=== PATIENT | male | born 1975 | race Caucasian/White ===

== ENCOUNTER 2019-01-21 06:52 | Emergency (ER) | payer OTHER, SELFPAY ==
[2019-01-21 06:59] VITALS: BP 109/73; PULSE 56; RESP 18; TEMP 36.6; O2SAT 100
--- NOTE | 2019-01-21 07:07 | DI.RAD.S_ITS ---
PROCEDURE: XR FINGER RT MIN 2V INDICATIONS: cut finger on metal yesterday, increased pain ?FB TECHNIQUE: AP hand, 2 views of the right second finger(s) acquired. COMPARISON: None. FINDINGS: Bones: No fractures or dislocations. No suspicious bony lesions. Soft tissues: No suspicious soft tissue calcifications. IMPRESSION: No fracture or foreign body found. Dictated by: Imtiaz Nassar M.D. on 01/21/2019 at 8:06 Approved by: Imtiaz Nassar M.D. on 01/21/2019 at 8:07
[2019-01-21] MEDS: IBUPROFEN 400 MG TABLET 800 MG PO (07:11)
[2019-01-21] MEDS: TET,DIPH,PERTUSS(ACELL),VAC/PF 0.5 ML SYRINGE IM (07:12)
--- NOTE | 2019-01-21 07:25 | ED.WOUNDLAC ---
HPI - Wound/Laceration General Chief Complaint: Wound/Laceration Stated Complaint: RIGHT INDEX FINGER LACERATION YESTERDAY Time Seen by Provider: 01/21/19 07:01 Source: patient Mode of arrival: ambulatory Limitations: no limitations History of Present Illness HPI narrative: Patient is a 43-year-old male who presents with right index finger laceration. He says yesterday it cut himself on a piece of metal. He thought it was just a regular cut however this morning woke up in extreme pain. Feels like something might be in the air. He did have a bandage on it may took the bandage off he says it got worse. He feels like it is a little bit numb. Bleeding is controlled. Tetanus is not up-to-date. Onset (ago): day(s) (1) Related Data Allergies Allergy/AdvReac Type Severity Reaction Status Date / Time No Known Drug Allergies Allergy Verified 01/21/19 07:11 Review of Systems Review of Systems GENERAL: Denies chills,fever HEENT: Denies throat pain RESPIRATORY: Denies dyspnea, cough, wheezing CARDIOVASCULAR: Denies chest pain, palpitations GASTROINTESTINAL: Denies nausea, vomiting MUSCULOSKELETAL: Denies extremity pain, injury SKIN: See HPI NEUROLOGIC: Denies weakness, dizziness, headache, numbness 8 point review of systems is negative except for those stated above and HPI [facility] Medical History Patient denies significant medical history (Acute) Social History Smoking Status: Never smoker Social History Smoking Status: Never smoker Exam Initial Vital Signs Initial Vital Signs: Vital Signs Temperature 98 F 01/21/19 06:59 Pulse Rate 56 L 01/21/19 06:59 Respiratory Rate 18 01/21/19 06:59 Blood Pressure 109/73 01/21/19 06:59 Pulse Oximetry 100 01/21/19 06:59 GENERAL: Well-appearing, well-nourished and in no acute distress. CARDIOVASCULAR: peripheral pulses in tact, cap refill <2 sec RESPIRATORY: No respiratory distress, speaks in full sentences without difficulty EXTREMITIES: Normal range of motion, no clubbing or edema. Neurovascularly intact NEUROLOGICAL: Cranial nerves II through XII grossly intact. Normal gait and speech. SKIN: Right index finger distal palmar side 0.5 cm small laceration bleeding controlled. No gross foreign body. Some mild swelling noted tender to touch. Full flexion and extension at the PIP. Course Orders Ordered: ED Orders 01/21/19 07:07 XR finger RT min 2V Stat Discontinued Medications Diphtheria/Tetanus/Acell Pertussis (Adacel) 0.5 ml IM .ONCE ONE Stop: 01/21/19 07:08 Last Admin: 01/21/19 07:12 Dose: 0.5 ml Ibuprofen (Advil) 800 mg PO NOW ONE Stop: 01/21/19 07:08 Last Admin: 01/21/19 07:11 Dose: 800 mg Vital Signs - 8 hr 01/21/19 06:59 01/21/19 07:45 Temperature 98 F Pulse Rate 56 L 52 L Respiratory Rate 18 18 Blood Pressure 109/73 129/73 Pulse Oximetry 100 98 MDM - Wound/Laceration Imaging Data finger XR: Radiologist's impression: PROCEDURE: XR FINGER RT MIN 2V INDICATIONS: cut finger on metal yesterday, increased pain ?FB TECHNIQUE: AP hand, 2 views of the right second finger(s) acquired. COMPARISON: None. FINDINGS: Bones: No fractures or dislocations. No suspicious bony lesions. Soft tissues: No suspicious soft tissue calcifications. IMPRESSION: No fracture or foreign body found. Dictated by: Imtiaz Nassar M.D. on 01/21/2019 at 8:06 MDM Narrative Medical decision making narrative: Discussed with patient that there may be a possible retained foreign body that does not show up on x-ray certainly am not seeing 1. But he is in quite a bit of pain. I recommend soaking in warm soapy water. Otherwise keeping it clean and dry. Ibuprofen does seem to help. Discharge Plan Departure Patient Disposition: Home Clinical Impression: Laceration of right index finger Qualifiers: Encounter type: initial encounter Damage to nail status: without damage Foreign body presence: without foreign body Qualified Code(s): S61.210A - Laceration without foreign body of right index finger without damage to nail, initial encounter Discharge Date/Time: 01/21/19 07:45 Interventions: ED Discharge Assessment Last Done: 01/21/19 07:45 Instructions: DI for Minor Laceration Activity Restrictions/Additional Instructions: *You have been diagnosed with right index finger laceration *What to do: At this time I do suspect a small piece of metal in her finger however it is not seen on x-ray recommend soaking in some warm soapy water a 1-2 times daily otherwise keep clean and dry. Apply antibiotic ointment to it also 1-2 times daily. For severe pain try ice. *Continue to take medications as directed Ibuprofen 800 mg every 8 hours with food if needed for pain Tylenol 1000 mg every 6 hours if needed for pain *Follow up with your primary care provider in 2-3 days *Return to ER if you should have redness pus swelling increased pain draining, streaking or any new, worsening or concerning symptoms Referrals: [facility] [Outside]
[2019-01-21 07:45] VITALS: BP 129/73; PULSE 52; RESP 18; O2SAT 98
== END 2019-01-21 07:45 | disposition home or self-care (01) ==
PROVIDERS: Emergency Provider Emergency Medicine
DX: S61.210A Laceration without foreign body of right index finger without damage to nail, initial encounter (principal); W26.8XXA Contact with other sharp object(s), not elsewhere classified, initial encounter; Z23 Encounter for immunization
CPT/HCPCS: 73140; 90471; 99283; 90715

== ENCOUNTER 2020-03-28 09:51 | Inpatient (IN) | payer OTHER, SELFPAY ==
[2020-03-28] VITALS (57 sets, daily range): BP systolic 112–154; BP diastolic 68–103; PULSE 58–79; RESP 8–29; TEMP 36.7–37.4; O2SAT 89–100; BMI 25.0
--- NOTE | 2020-03-28 10:03 | DI.RAD.S_ITS ---
PROCEDURE: XR CHEST 1V INDICATIONS: trauma. TECHNIQUE: One view of the chest was acquired. COMPARISON: None. FINDINGS: Surgical changes and devices: None. Lungs and pleura: There is mild haziness of the left hemithorax that may represent a pleural effusion layering posteriorly and/or pulmonary contusion. No definite pneumothorax is seen. The right lung is clear. Mediastinum: Mediastinal contours appear normal. Heart size is normal. Bones and chest wall: Subcutaneous emphysema is seen at the left chest wall. Posterolateral left 3rd through 6th rib fractures are noted. There are also probable fractures of the posterior 4th and 5th ribs near the costovertebral junction. There is a displaced fracture of the midshaft of the left clavicle that is not well evaluated on this exam. The left scapula is not well visualized due to overlying structures. Degenerative changes are seen in the right acromioclavicular joint and the included spine. IMPRESSION: 1. Multiple displaced and mildly displaced left upper rib fractures with segmental fractures involving at least the 4th and 5th ribs. Haziness of the left hemithorax may represent a layering effusion versus pulmonary contusion without a definite large pneumothorax visualized. Subcutaneous emphysema is seen at the left chest wall. CT may be obtained for further evaluation if indicated. 2. Displaced fracture of the left clavicle with overriding of fracture fragments. Dictated by: Osmar Aceves M.D. on 03/28/2020 at 10:12 Approved by: Osmar Aceves M.D. on 03/28/2020 at 10:20
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
[2020-03-28 10:32] LABS: Add Manual Diff / Slide Review NO; Basophils Absolute Auto 100 /uL (0-100); Basophils Percent Auto 0.9 % (0-2); Eosinophils Absolute Auto 300 /uL (0-450); Eosinophils Percent Auto 4.6 % (2-4); Hematocrit 40.6 % (41-53); Hemoglobin 13.9 g/dL (13.5-17.5); Lymphocytes Absolute Auto 1400 /uL (1100-4500); Lymphocytes Percent Auto 22.4 % (25-40); Mean Corpuscular HGB Conc 34.2 % (30-36); Mean Corpuscular Hemoglobin 30.6 PG (26-34); Mean Corpuscular Volume 89.4 fL (80-100); Monocytes Absolute Auto 500 /uL (0-900); Monocytes Percent Auto 7.6 % (3-14); Neutrophils Absolute Auto 4000 /uL (1500-7000); Neutrophils Percent Auto 64.5 % (50-75); Platelet Count 179 X10^3/uL (150-400); Red Blood Cell Count 4.54 X10^6/uL (4.5-5.9); Red Cell Distribution Width 13.2 % (11.6-14.8); White Blood Cell Count 6.2 X10^3/uL (4.5-11.0)
[2020-03-28 10:39] LABS: Alanine Aminotransferase 40 IU/L (<50); Albumin 4.3 g/dL (3.5-5.0); Albumin Globulin Ratio 1.5 (1.0-2.8); Alkaline Phosphatase 66 U/L (38-126); Aspartate Aminotransferase 46 IU/L (17-59); BUN Creatinine Ratio 20.7 (6-22); Bilirubin Total 1.1 mg/dL (0.2-1.3); Blood Urea Nitrogen 19 mg/dL (9-20); Calcium 9.2 mg/dL (8.4-10.2); Carbon Dioxide 31 mmol/L (22-32); Chloride 100 mmol/L (98-107); Estimated Glomerular Filt Rate > 60.0 mL/min (>60); Globulin 2.9 g/dL (1.7-4.1); Glucose 118 mg/dL (70-100); HEMOLYSIS < 15 (0-50); Potassium 4.1 mmol/L (3.4-5.1); Sodium 138 mmol/L (137-145); Total Protein 7.2 g/dL (6.3-8.2)
--- NOTE | 2020-03-28 11:23 | PC.NURSE ---
Patient requested more pain medication. Relayed request to nurse.
--- NOTE | 2020-03-28 11:26 | PC.NURSE ---
Pt spoke to and brother. is on her way here.
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
[2020-03-28] MEDS: HYDROMORPHONE 1 MG INJ IV ×3 (11:32→19:08)
--- NOTE | 2020-03-28 11:41 | PC.NURSE ---
Surgeon paged. pt medicated for pain. SPO2 noted to be 90-91%. Placed on 2L O2 with improvement.
--- NOTE | 2020-03-28 12:00 | DI.RAD.S_ITS ---
PROCEDURE: XR CHEST 1V INDICATIONS: recheck TECHNIQUE: One view of the chest was acquired. COMPARISON: [facility], CR, XR CHEST 1V, 03/28/2020, 9:59. FINDINGS: Surgical changes and devices: None. Lungs and pleura: There is interval increase in size of patient's known left-sided pneumothorax. Hazy opacities in left lower lung field are again seen. No right-sided pneumothorax. No significant pleural effusion. Mediastinum: Mediastinal contours appear normal. Heart size is enlarged. Bones and chest wall: Multiple fractured right posterior ribs are again seen. No suspicious bony lesions. Overlying soft tissues appear unremarkable. IMPRESSION: Interval increase in size of patient's known left-sided pneumothorax. Persistent opacities seen in left lower lung field and multiple left posterior mid to lower rib fractures. No right-sided pneumothorax. Dictated by: Akash Rayo M.D. on 03/28/2020 at 11:29 Approved by: Akash Rayo M.D. on 03/28/2020 at 11:32
[2020-03-28 12:20] LABS: Hemoglobin 14.1 g/dL (13.5-17.5)
[2020-03-28] MEDS: fentaNYL 100 MCG/2 ML INJ 200 MCG IV (12:27)
[2020-03-28] MEDS: LIDO 1%/SOD BICARB 8.4% (10ML) 10 ML SYRINGE INJ (12:30)
[2020-03-28 12:45] LABS: COVID19 -Nasal RAPID Negative (Negative)
--- NOTE | 2020-03-28 12:45 | DI.RAD.S_ITS ---
PROCEDURE: XR CHEST 1V INDICATIONS: chest tube insertion TECHNIQUE: One view of the chest was acquired. COMPARISON: [facility], CT, CT CHEST W CON, 03/28/2020, 10:26. [facility], CR, XR CHEST 1V, 03/28/2020, 9:59. [facility], CR, XR CHEST 1V, 03/28/2020, 11:56. FINDINGS: Surgical changes and devices: A left-sided chest tube has been placed. Lungs and pleura: There is a small residual left-sided pneumothorax, which is clearly improved compared to the prior examination. Mediastinum: Mediastinal contours appear normal. Heart size is normal. Bones and chest wall: Left-sided rib fractures are again seen. Left-sided soft tissue gas is seen. IMPRESSION: Left-sided chest tube, with nearly resolved left-sided pneumothorax. Left-sided rib fractures are seen. Dictated by: Arya Gilliam M.D. on 03/28/2020 at 12:06 Approved by: Arya Gilliam M.D. on 03/28/2020 at 12:08
[2020-03-28] MEDS: MIDAZOLAM 2 MG/2 ML VIAL 4 MG (12:55)
[2020-03-28] MEDS: SODIUM CHLORIDE 0.9% 1,000 ML 1000 ML IV (12:56)
--- NOTE | 2020-03-28 13:00 | PC.NURSE ---
1210: consent witnessed and placed in chart.
[2020-03-28] MEDS: LACTATED RINGERS 1,000 ML 100 ML IV (14:06)
--- NOTE | 2020-03-28 15:01 | PC.NURSE ---
Admit Note Pt to room 231 from ER via stretcher at 1354. Transferred via slider board with 4 person assist. Alert and oriented x3. Reports pain to left side 9/10, medicated with Dilaudid per emar. Chest tube to wall suction, 20 cm, sanguinous drainage noted in tube, intermittent air leak (level 3) noted with deep inspiration or cough. Dressing to left side C/D/I. Scant crepitus noted to anterior left side. Healing abrasions to left knee, left flank, and left elbow from previous fall (days ago) [id number]. Cleaned abrasion to left flank and new band-aid placed. SpO2 98% on RA. Instructed on deep breathing and coughing and to splint during this activity. Oriented to room and to call light/bed/tv controls, call light within reach. All valuables (cell phone, wallet, keys) to go home with . currently at bedside.
[2020-03-28] MEDS: OXYCODONE IR 10 MG TABLET PO ×2 (15:52→22:03)
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
[2020-03-28] MEDS: LIDOCAINE PATCH 1 EACH ADH..PATCH TOP (17:04)
[2020-03-28] MEDS: KETOROLAC 30 MG/ML VIAL IV (17:04)
[2020-03-28] MEDS: ONDANSETRON 4 MG/2 ML INJ IV (19:42)
[2020-03-28] MEDS: GABAPENTIN 300 MG CAPSULE PO (21:00)
[2020-03-28] MEDS: SENNOSIDES 8.6 MG TABLET 17.2 MG PO (21:00)
--- NOTE | 2020-03-28 21:04 | PC.NURSE ---
Evening shift note Alert and oriented x3. Reports pain to left side 10/10, medicated with Dilaudid IV as ordered. Chest tube to wall suction, 20 cm, sanguinous drainage noted in tube, intermittent air leak (level 3) noted with deep inspiration or cough. Dressing to left side CDI, ice pack to side to assist with pain, lidocaine patch to left lateral back. Healing abrasions to left knee, left flank, and left elbow from previous fall (a few days ago) off [id number]. Cleaned abrasion to left flank and new band-aid placed. SpO2 98% on 2L NC (O2 for comfort). Instructed on deep breathing and coughing and to splint during this activity, also instructed on IS usage. Bed low and locked, call light within reach, at bedside and all needs met at this time will continue to monitor.
[2020-03-28] MEDS: DOCUSATE 100 MG CAPSULE PO (22:03)
--- NOTE | 2020-03-28 23:13 | PC.NURSE ---
2120 Patient unable to void. Bladder scan done,838 cc of urine detected. RN notified.
[2020-03-29] VITALS (52 sets, daily range): BP systolic 110–148; BP diastolic 69–85; PULSE 59–73; RESP 7–30; TEMP 36.4–37.4; O2SAT 89–100
[2020-03-29] MEDS: KETOROLAC 30 MG/ML VIAL IV ×4 (00:05→20:56)
[2020-03-29] MEDS: LACTATED RINGERS 1,000 ML 100 ML IV ×2 (00:06→08:50)
[2020-03-29] MEDS: OXYCODONE IR 10 MG TABLET PO ×5 (04:43→21:24)
[2020-03-29 05:05] LABS: Add Manual Diff / Slide Review NO; Basophils Absolute Auto 0 /uL (0-100); Basophils Percent Auto 0.7 % (0-2); Eosinophils Absolute Auto 300 /uL (0-450); Eosinophils Percent Auto 4.8 % (2-4); Hematocrit 35.5 % (41-53); Hemoglobin 12.2 g/dL (13.5-17.5); Lymphocytes Absolute Auto 1200 /uL (1100-4500); Lymphocytes Percent Auto 19.7 % (25-40); Mean Corpuscular HGB Conc 34.4 % (30-36); Mean Corpuscular Volume 90.1 fL (80-100); Monocytes Absolute Auto 700 /uL (0-900); Monocytes Percent Auto 10.4 % (3-14); Neutrophils Absolute Auto 4000 /uL (1500-7000); Neutrophils Percent Auto 64.4 % (50-75); Platelet Count 143 X10^3/uL (150-400); Red Blood Cell Count 3.94 X10^6/uL (4.5-5.9); White Blood Cell Count 6.3 X10^3/uL (4.5-11.0)
[2020-03-29 05:14] LABS: Alanine Aminotransferase 41 IU/L (<50); Albumin 3.4 g/dL (3.5-5.0); Albumin Globulin Ratio 1.3 (1.0-2.8); Alkaline Phosphatase 54 U/L (38-126); Aspartate Aminotransferase 61 IU/L (17-59); BUN Creatinine Ratio 13.8 (6-22); Bilirubin Total 1.8 mg/dL (0.2-1.3); Blood Urea Nitrogen 13 mg/dL (9-20); Calcium 8.3 mg/dL (8.4-10.2); Carbon Dioxide 32 mmol/L (22-32); Chloride 100 mmol/L (98-107); Estimated Glomerular Filt Rate > 60.0 mL/min (>60); Globulin 2.7 g/dL (1.7-4.1); Glucose 106 mg/dL (70-100); HEMOLYSIS < 15 (0-50); Potassium 4.2 mmol/L (3.4-5.1); Sodium 134 mmol/L (137-145); Total Protein 6.1 g/dL (6.3-8.2)
[2020-03-29] MEDS: HYDROMORPHONE 1 MG INJ IV ×6 (05:31→23:55)
[2020-03-29] MEDS: LIDOCAINE JELLY 2% 5 ML 1 APPLIC TOP (05:32)
--- NOTE | 2020-03-29 06:34 | PC.NURSE ---
Glass Engraver Note-Patient has been drowsy and little forgetful but oriented x4. at bedside all night. Lt lateral CT patent to 20cm sx, no air leaks, all connections secured, 150ml sanguinous drainage, slight crepitus to Lt pectoral, SpO2 >92% on 2L NC. Peck catheter placed in am for urinary retention. Pain controlled with IV Toradol, IV Dilaudid, and Percolone per prn, see Emar.
[2020-03-29 06:37] LABS: Bacteria Urine None Seen; RBC Urine None Seen (0-5/HPF)
[2020-03-29 06:48] LABS: Appearance Urine UA CLEAR; Bilirubin Urine UA NEGATIVE (NEGATIVE); Color Urine UA YELLOW; Glucose Urine UA NEGATIVE (Negative); Ketones Urine UA NEGATIVE (NEGATIVE); Leukocyte Esterase Urine UA NEGATIVE (NEGATIVE); Nitrite Urine UA NEGATIVE (Negative); Occult Blood Urine UA NEGATIVE (Negative); Protein Urine UA NEGATIVE (Negative); Urobilinogen Urine UA 0.2 E.U./dL (0.2)
[2020-03-29 06:56] LABS: WBC Urine 0-1/HPF (0-5/HPF)
[2020-03-29 06:57] LABS: Culture Indicated Urine Cult Not Indicated; Mucus Urine 1+ (Negative)
--- NOTE | 2020-03-29 07:15 | DI.RAD.S_ITS ---
PROCEDURE: XR CHEST 1V INDICATIONS: follow up for pneumothorax/rib fractures TECHNIQUE: One view of the chest was acquired. COMPARISON: [facility], , XR CHEST 1V, 03/28/2020, 12:47. FINDINGS: Surgical changes and devices: Left-sided chest tube is stable. Lungs and pleura: Small apically left pneumothorax is stable compared to March 28, 2020 at 12:47 p.m.. Patchy opacification left lung base is stable. Trace left-sided pleural fluid collection is stable. Mediastinum: Mediastinal contours appear normal. Heart is enlarged. Bones and chest wall: Multiple left-sided rib fractures redemonstrated. No suspicious bony lesions. Overlying soft tissues appear unremarkable. IMPRESSION: Stable examination compared to March 28, 2020 at 12:47 p.m. small residual left apical pneumothorax unchanged compared to the prior examination. Dictated by: Arpita Clay MD, PhD on 03/29/2020 at 7:33 Approved by: Arpita Clay MD, PhD on 03/29/2020 at 7:35
[2020-03-29] MEDS: ACETAMINOPHEN 325 MG TABLET 650 MG PO (08:41)
[2020-03-29] MEDS: GABAPENTIN 300 MG CAPSULE PO ×2 (08:41→20:55)
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
[2020-03-29] MEDS: ONDANSETRON 4 MG/2 ML INJ IV (18:48)
[2020-03-29] MEDS: DOCUSATE 100 MG CAPSULE PO (20:55)
[2020-03-29] MEDS: SENNOSIDES 8.6 MG TABLET 17.2 MG PO (20:55)
[2020-03-29] MEDS: LIDOCAINE PATCH 1 EACH ADH..PATCH TOP (20:55)
--- NOTE | 2020-03-29 21:40 | PC.NURSE ---
2100- Patient assisted back to bed. C/O pain 04/07. Medicated per order. Patient is using IS up to 1000ml. Left lung sounds are improved via auscultation more air movement. Chest tube is to 20cm suction per order, no leaks appreciated and no crepitus upon palpation. Left Pectoral muscle has swelling and a hematoma. Patient was up most of this evening. Will monitor.
[2020-03-30] VITALS (15 sets, daily range): BP systolic 130–137; BP diastolic 62–87; PULSE 63–89; RESP 8–24; TEMP 36.2–37.8; O2SAT 90–100
[2020-03-30] MEDS: HYDROMORPHONE 1 MG INJ IV ×5 (03:23→23:00)
[2020-03-30] MEDS: OXYCODONE IR 10 MG TABLET PO ×4 (03:23→21:28)
[2020-03-30 05:06] LABS: Add Manual Diff / Slide Review NO; Basophils Absolute Auto 0 /uL (0-100); Basophils Percent Auto 0.4 % (0-2); Eosinophils Absolute Auto 300 /uL (0-450); Eosinophils Percent Auto 4.5 % (2-4); Hematocrit 34.9 % (41-53); Lymphocytes Absolute Auto 1000 /uL (1100-4500); Lymphocytes Percent Auto 15.7 % (25-40); Mean Corpuscular HGB Conc 34.3 % (30-36); Mean Corpuscular Hemoglobin 30.8 PG (26-34); Mean Corpuscular Volume 89.9 fL (80-100); Monocytes Absolute Auto 600 /uL (0-900); Neutrophils Absolute Auto 4400 /uL (1500-7000); Neutrophils Percent Auto 69.4 % (50-75); Platelet Count 133 X10^3/uL (150-400); Red Blood Cell Count 3.88 X10^6/uL (4.5-5.9); Red Cell Distribution Width 12.7 % (11.6-14.8); White Blood Cell Count 6.4 X10^3/uL (4.5-11.0)
[2020-03-30] MEDS: GABAPENTIN 300 MG CAPSULE PO ×2 (08:13→21:27)
[2020-03-30] MEDS: KETOROLAC 30 MG/ML VIAL IV ×2 (08:14→16:22)
[2020-03-30] MEDS: ONDANSETRON 4 MG/2 ML INJ IV ×3 (08:30→23:00)
[2020-03-30] MEDS: ACETAMINOPHEN 325 MG TABLET 650 MG PO (10:02)
--- NOTE | 2020-03-30 12:33 | DI.RAD.S_ITS ---
PROCEDURE: XR CHEST 1V INDICATIONS: pneumothorax, chest tube follow up TECHNIQUE: One view of the chest was acquired. COMPARISON: [facility], , XR CHEST 1V, 03/29/2020, 5:15. FINDINGS: Surgical changes and devices: Left-sided chest tube is again seen.. Lungs and pleura: Subtle hazy opacity in left mid to lower lung arita are seen. No definite pneumothorax is noted on the current study. Right lung is clear. Mediastinum: Mildly tortuous thoracic aorta is seen. Heart size is enlarged. Bones and chest wall: Multiple left-sided rib fractures are again noted.. Overlying soft tissues appear unremarkable. IMPRESSION: Multiple left rib fractures. Hazy opacity in left mid to lower lung arita likely represent contusion versus atelectasis. No obvious pneumothorax is seen. Left-sided chest tube remains in place. Dictated by: Akash Rayo M.D. on 03/30/2020 at 12:23 Approved by: Akash Rayo M.D. on 03/30/2020 at 12:27
--- NOTE | 2020-03-30 13:04 | PT.IPTN ---
Current Diagnoses Hemothorax (03/28/20) Multiple fractures of ribs, unspecified side, initial encounter for closed fracture (03/28/20) Traumatic pneumothorax, initial encounter (03/28/20) Contusion of lung, unilateral, initial encounter (03/28/20) Physical Therapy Treatment Note M2 PT-IP Current Condition Start: 03/29/20 13:35 Freq: NEEDED Status: Active Protocol: Document 03/29/20 17:04 AW (Rec: 03/29/20 17:32 AW [id number]) Physical Therapy Current Condition Current Condition Evaluation Date 03/29/20 Treatment Diagnosis L pneumothorax, L hemothorax, L rib fractures 1-12; difficulty in walking Onset Date 03/28/20 Precautions Other Precautions chest tube M3 PT-IP Subjective Start: 03/29/20 13:35 Freq: NEEDED Status: Active Protocol: Document 03/30/20 12:44 HH (Rec: 03/30/20 13:02 HH [id number]) Subjective Physical Therapy Visit Type Type Treatment Note Visit Start Time 10:30 Visit Stop Time 11:16 Total Visit Minutes 46 Notes Father attended session Number of [employer] Visits 0 Physical Therapy Visit Comments Patient Comments Pt is willing to participate with PT Patient Goals Self-care as independent as possible at home and return to activity Therapy Pain Assessment Pain When Pain Assessed During Mobility Pain Present Pain Present Pain Reported Location left ribs Intensity 7 Scale Used 5/10 at rest; 7/10 during movement Pain Management Techniques Apply Cold,Timing of Activity with Medications M4 PT-IP Mobility and Gait Start: 03/29/20 13:35 Freq: NEEDED Status: Active Protocol: Document 03/30/20 12:44 HH (Rec: 03/30/20 13:02 [id number]) PT-Transfer Assessment Sit to and From Stand Sit to and from Stand Contact Guard Assistance,Use of Upper Extremities Equipment Transfer Assistive Device Gait Belt,Front Wheeled Walker Orthotic/Prosthetic Devices or Brace: No Transfers Transfer Destination Chair Transfer Technique pt ambulated with FWW Transfer Ability Level of Assist Contact Guard Assistance,Use of Upper Extremities Comments Mobility Comments Pt was standing next to bedside with RN assistance upon PT arrival. SpO2 at 94% with NC 2L. Assisted RN to replace NC with portable oxygen tank. Pt was very eagar to mobilize. Pt was handed off by RN to cont mobility and father and RN assisted in tube management. Pt amb from bedside (R) towards the window slowly with step to pattern then to sink counter for self care. He was able to stand with 1UE support on counter while he is shaving without NC . SpO2 at92 %. Pt stood for 5 mins but suddently c/o fatigue and lightheadiness and requested to rest. SpO2 at 90% and placed NC with 2L on him again. Pt was impulsively trying to walk over to chair without walker. He needed max cues to stay in place while father assisted bringing chair over. Pt then slowly stand step transferred himself to chair. He appeared very fatigue and lethargic. SpO2 at 92% in seated. Positioned him back to bedside. Pt went to sleep and call light placed within reach. Gait Assessment Gait Gait Assistance Required: Contact Guard Assist,1 Person Assist Distance (Feet) 10 Assistive Devices Assistive Device Gait Belt,Front Wheeled Walker Orthotic/Prosthetic Devices or Brace: No Gait Deviations General Gait Pattern Antalgic,Decreased Stride Length,Decreased Feet Clearance,Flexed Trunk,Step-to Gait Factors Limiting Gait Function Factors Limiting Gait Function Decreased Activity Tolerance, Decreased Sensation,Decreased Strength,Limited Range of Motion,Pain,Poor Balance,Poor Safety Awareness Comments Gait Comments See mobility comments for details. Stair Climbing Assessment Comments Stair Climbing Comments Not assessed. Pt will need to clear stairs prior to discharge. PT-Balance Assessment Sitting Balance and Reactions Static Sitting Balance Ability Good Dynamic Sitting Balance Ability Fair Standing Balance and Reactions Static Standing Balance Ability Good Dynamic Standing Balance Ability Fair Device Used FWW M5 PT-IP Objective Assessments Start: 03/29/20 13:35 Freq: NEEDED Status: Active Protocol: Document 03/29/20 17:04 AW (Rec: 03/29/20 17:32 AW [email or web address]) Orientation Orientation/Cognition Level of Alertness Alert Orientation Name,Day of Week,Place, Situation Language Function Ability No Deficits Noted Safety Awareness Decreased Safety Awareness Gross Range of Motion Lower Extremity ROM Assessment Within Functional Limits Strength Lower Extremity Strength Assessment Bilaterally Impaired Hip 4-/5 Knee 4+/5 Ankle 4+/5 Comments Strength Comments Limited hip exam due to pain Coordination Assessment Gross Coordination Gross Coordination WNL Sensation Assessment Sensation Light Touch Impaired Sensation Description Numbness Comments Sensation Comments Pt reports numbness at left anterior chest. Muscle Tone Muscle Tone WNL Yes M6 PT-IP Treatment Start: 03/29/20 13:35 Freq: NEEDED Status: Active Protocol: Document 03/30/20 13:03 HH (Rec: 03/30/20 13:04 HH [id number]) Physical Therapy Treatment Other Treatments Other Treatment Performed provided LE exercise program for pt with seated hip abduction, knee extension and ankle pechanga. M7 PT-IP Assessment and Plan Start: 03/29/20 13:35 Freq: NEEDED Status: Active Protocol: Document 03/30/20 12:44 HH (Rec: 03/30/20 13:02 HH [id number]) PT Summary Assessment and Plan Potential Rehabilitation Potential Good Status of Condition at Evaluation Evolving Summary Impairments Pain,ROM,Strength,Balance, Sensation,Bed Mobility, Transfers,Gait,Activity Tolerance Assessment Summary Pt cont to be very eager and impulsive to mobilize and needed constant education on his current condition and recommended him to mobilize as javier and allow time to recover . Pt was up in standing for over 12 mins with PT but he got fatigue and lightheaded quickly. Pt also stated he could d/c to his parents level entry home if he couldnt recover fast enough to complete stair climbing. Goals Bed Mobility Goal Standby Assistance Transfer Goal Standby Assistance Gait Goal Standby Assistance,Front Wheel Walker Gait Distance 200 Other Goals - up/down 15 steps without railing SBA transfer and gait goals with LRAD Days to Meet Goals 5 Frequency of Treatment Frequency Of Treatment Once a Day Treatment Plan Physical Therapy Treatment Plan Bed Mobility Training,Transfer Training,Gait Training, Therapeutic Exercise,Balance Retraining,Discharge Planning, Hot or Cold Pack,Neuromuscular Re-ed,Manual Therapy Other Recommendations and Next Treatment assess bed mobility, reinforce Focus diaphragmatic breathing, gait training with LRAD, stairs when able Recommendations To Nursing Amount of Assist Needed 1 Person Assist Discharge Recommendations PT Discharge Recommendations Home with Assistance,Home Health,Outpatient PT Other Discharge Recommendations Home with assist and HH vs OP PT Transportation Needs at Discharge Private Vehicle,Wheelchair/ Cabulance
--- NOTE | 2020-03-30 13:58 | PM.PN.1 ---
Subjective Subjective Date Patient Seen: 03/30/20 Time Patient Seen: 12:15 Interval history: No acute events overnight. Left chest is hurting at the site of hist rib fractures. He is breathing well in spite of that. Exam Vital Signs (past 8 hours): - 03/30/20 06:00 03/30/20 08:00 03/30/20 09:38 Temperature 100.0 F H Pulse Rate 84 77 Respiratory Rate 17 23 Blood Pressure 130/84 Pulse Oximetry 90 L 93 93 03/30/20 12:00 Temperature 97.1 F L Pulse Rate 63 Respiratory Rate 18 Blood Pressure 133/70 Pulse Oximetry 100 Oxygen Delivery Method Nasal Cannula Oxygen Flow Rate 3 Narrative Exam Narrative: GENERAL: Alert, comfortable appearing. Appears stated age. Answers questions promptly and appropriately. Vital signs noted. HENT: Normocephalic, atraumatic. Hearing intact. EYES: Conjunctiva pink, sclera white, no periorbital swelling. CARDIOVASCULAR: Regular rate. No pedal edema. RESPIRATORY: Non-tachypneic, breathing comfortably on 2 L nasal cannula. Chest: chest tube in place and secure; no leak on the chest tube box; suction removed MUSCULOSKELETAL: Equal tone and mass bilaterally. SKIN: Warm, dry, soft, appropriate color for ethnicity. No other lesions, rashes, or wounds. NEURO: Alert and Oriented X 3. No gross sensory deficits, or cognitive issues. PSYCH: Appropriate affect and mood. Objective Imaging Chest x-ray: Radiologist's impression: [address] [address] XRay Report Signed Patient: Mike Kruse MMR#: [id number] : 1975Acct:[id number] Age/Sex: 44 / MDate of Service: 03/30/20 Loc: [id number] Accession Number: [id number] Procedure: XR chest 1V Ordering Provider: Bhavya Hernandez MD PROCEDURE: XR CHEST 1V INDICATIONS: pneumothorax, chest tube follow up TECHNIQUE: One view of the chest was acquired. [facility] 5:15. FINDINGS: Surgical changes and devices: Left-sided chest tube is again seen.. Lungs and pleura: Subtle hazy opacity in left mid to lower lung arita are seen. No definite pneumothorax is noted on the current study. Right lung is clear. Mediastinum: Mildly tortuous thoracic aorta is seen. Heart size is enlarged. Bones and chest wall: Multiple left-sided rib fractures are again noted.. Overlying soft tissues appear unremarkable. IMPRESSION: Multiple left rib fractures. Hazy opacity in left mid to lower lung arita likely represent contusion versus atelectasis. No obvious pneumothorax is seen. Left-sided chest tube remains in place. Dictated by: Akash Rayo M.D. on 03/30/2020 at 12:23 Approved by: Akash Rayo M.D. on 03/30/2020 at 12:27 Labs Result Diagrams: 03/30/20 04:35 03/29/20 04:30 Labs: Laboratory Results - last 24 hr 03/30/20 04:35 WBC 6.4 RBC 3.88 L Hgb 12.0 L Hct 34.9 L MCV 89.9 MCH 30.8 MCHC 34.3 RDW 12.7 Plt Count 133 L Neut % (Auto) 69.4 Lymph % (Auto) 15.7 L [place] % (Auto) 10.0 Eos % (Auto) 4.5 H Baso % (Auto) 0.4 Neut # (Auto) 4400 Lymph # (Auto) 1000 L [place] # (Auto) 600 Eos # (Auto) 300 Baso # (Auto) 0 Assessment & Plan Assessment and plan (1) Multiple rib fractures: Problem details: Most concerning that he could develop a flail chest and not be able to adequately expand his left chest. Status: Acute (2) Trauma: Status: Acute (3) Closed flail chest: Qualifiers: Encounter type: initial encounter Qualified Code(s): S22.5XXA - Flail chest, initial encounter for closed fracture Status: Acute (4) Pneumothorax: Problem details: Acute pneumothorax secondary to trauma. Will place chest tube.(done)(tube was placed urgently before this note was dictated.) Qualifiers: Encounter type: initial encounter Pneumothorax type: traumatic Qualified Code(s): S27.0XXA - Traumatic pneumothorax, initial encounter Status: Acute (5) Hemothorax: Problem details: Should be able to be treated with the chest tube which has already been placed. Status: Acute (6) Contusion of left lung: Problem details: Observe. Incentive spirometry. Qualifiers: Encounter type: initial encounter Qualified Code(s): S27.321A - Contusion of lung, unilateral, initial encounter Status: Acute (7) Urinary retention: Status: Acute Assessment & Plan narrative: This is a 44-year-old man with multiple rib fractures with flail segment. He is on hospital day 3, and has a chest tube in place on suction. It was taken off of suction today and put to seal. He had some urinary retention yesterday morning and had a juares placed. Plan: Chest tube to seal repeat CXR tomorrow pain control Start flomax remove juares tomorrow ambulate as tolerated Incentive spirometry COVID-19 COVID-19 status: Negative Result date/Date tested (Pos, Neg/Pending): 03/28/20 Time Spent With Patient Time with patient: 25 - 35 minutes Quality VTE Deep Vein Thrombosis/Pulmonary Embolism Present on Admission: No
--- NOTE | 2020-03-30 15:12 | P.PN_ITS ---
Subjective Subjective Date Patient Seen: 03/29/20 Time Patient Seen: 13:00 Interval history: Patient is a gentleman who sustained trauma resulting in multiple rib fractures and a pneumohemothorax. He had some urinary retention and a Peck was placed. He is feeling little better. He got up into a chair. This required a lot of assistance in it caused a lot of pain. He is working on his breathing and that is slowly improving as well. Exam Vital Signs (past 8 hours): - 03/30/20 08:00 03/30/20 09:38 03/30/20 12:00 Temperature 100.0 F H 97.1 F L Pulse Rate 77 63 Respiratory Rate 23 18 Blood Pressure 130/84 133/70 Pulse Oximetry 93 93 100 Oxygen Delivery Method Nasal Cannula Oxygen Flow Rate 3 Narrative Exam Narrative: Cooperative in no apparent distress. Lungs effort could be better but he has a great deal of pain on inspiration. The lungs however are clear. Chest wall remains tender. Heart regular rate and rhythm without murmur gallop. Abdomen is soft nontender without mass. Objective Labs Result Diagrams: 03/30/20 04:35 03/29/20 04:30 Labs: Laboratory Results - last 24 hr 03/30/20 04:35 WBC 6.4 RBC 3.88 L Hgb 12.0 L Hct 34.9 L MCV 89.9 MCH 30.8 MCHC 34.3 RDW 12.7 Plt Count 133 L Neut % (Auto) 69.4 Lymph % (Auto) 15.7 L [place] % (Auto) 10.0 Eos % (Auto) 4.5 H Baso % (Auto) 0.4 Neut # (Auto) 4400 Lymph # (Auto) 1000 L [place] # (Auto) 600 Eos # (Auto) 300 Baso # (Auto) 0 Assessment & Plan Assessment & Plan narrative: Labs and x-ray from the 1st are noted. Vital signs from the 1st were also noted. He is doing well. Pain is slowly improving. Chest tube is fluctuating well. No obvious air leak. Diet advanced. Removed from ICU care to floor care. Continue to try to mobilize. Quality VTE Deep Vein Thrombosis/Pulmonary Embolism Present on Admission: No
--- NOTE | 2020-03-30 15:24 | PC.NURSE ---
Am shift Pt is A/o up to chair with pain medication on board. Chest tube to water seal, wall suction @ 20cm suction. No crepitus appreciaited to L chest tube. 2L o2 N[place], enc aggressive IS use today. Pt was able to hit 1000mls. Frequent enc for cough and deep breathe. Peck draining clear urine, Discussed removal with Cherri Oviedo to start this shift, and removal to be considered in AM. Suction to chest tube stopped by Dr Hernandez @ 1330. Water seal. Output of 180mls this shift. Marked. Scds in place. Pt is attempting to use PO pain control as Dilaudid IV caused increased nausea. Father into visit most of shift.
[2020-03-30] MEDS: TAMSULOSIN 0.4 MG CAPSULE PO (16:14)
--- NOTE | 2020-03-30 19:40 | PC.NURSE ---
1900- Patient declined getting oob for dinner due to coughing and increased pain. Made a plan to medicate with 0.5mg of Dilaudid and Zofran IV and wait 15min. Patient was able to get oob and ambulate in the room with assist. Patient uses the wheeled walker with assist of one person. Patient states he had less nausea and was able to mobilize without too much discomfort. Patient is using the IS and can get to 1200ml. Patient is sitting up in the chair now. Chest tube connection is stable and the Kaylin system is to water seal. Will monitor.
[2020-03-30] MEDS: LIDOCAINE PATCH 1 EACH ADH..PATCH TOP (21:27)
[2020-03-30] MEDS: SENNOSIDES 8.6 MG TABLET 17.2 MG PO (21:27)
[2020-03-30] MEDS: DOCUSATE 100 MG CAPSULE PO (21:27)
[2020-03-31] VITALS (9 sets, daily range): BP systolic 109–139; BP diastolic 68–80; PULSE 60–78; RESP 16–18; TEMP 36.8–37.3; O2SAT 93–100
[2020-03-31] MEDS: HYDROMORPHONE 1 MG INJ IV ×4 (00:20→15:46)
[2020-03-31] MEDS: KETOROLAC 30 MG/ML VIAL IV ×3 (01:30→18:49)
[2020-03-31] MEDS: OXYCODONE IR 10 MG TABLET PO ×6 (01:31→23:17)
[2020-03-31] MEDS: ONDANSETRON 4 MG/2 ML INJ IV ×2 (04:59→14:28)
--- NOTE | 2020-03-31 08:00 | DI.RAD.S_ITS ---
PROCEDURE: XR CHEST 1V INDICATIONS: pneumothorax TECHNIQUE: One view of the chest was acquired. COMPARISON: [facility], , XR CHEST 1V, 03/30/2020, 12:37. FINDINGS: Surgical changes and devices: Unchanged left lateral upper thoracostomy tube.. Lungs and pleura: Atelectasis in the right lower lung. Lungs are otherwise clear. No pleural fluid collection. No evident pneumothorax within limits of plain film. Mediastinum: Mediastinal contours appear normal. Heart size is normal. Bones and chest wall: No suspicious bony lesions. Multiple left-sided rib fractures are again seen, unchanged. Degenerative changes of the shoulders. Small amount of air in the lateral left chest wall, likely from presence of chest tube. IMPRESSION: No evident pneumothorax. Multiple unchanged left-sided rib fractures. Dictated by: Anthony Garza M.D. on 03/31/2020 at 7:50 Approved by: Anthony Garza M.D. on 03/31/2020 at 7:55
--- NOTE | 2020-03-31 08:46 | DI.RAD.S_ITS ---
PROCEDURE: XR CHEST 1V INDICATIONS: new onset SOB TECHNIQUE: One view of the chest was acquired. COMPARISON: [facility], CR, XR CHEST 1V, 03/31/2020, 6:11. FINDINGS: Surgical changes and devices: Again noted is a left sided thoracostomy tube terminating in the upper lateral pleural space. Lungs and pleura: Atelectasis in the right lower lung unchanged. No discernible pneumothorax. Trace left pleural fluid collection. Numerous contiguous left-sided rib fractures are unchanged. Mediastinum: Mediastinal contours appear normal. Heart size is normal. Bones and chest wall: No suspicious bony lesions. Overlying soft tissues appear unremarkable. IMPRESSION: 1. No evident pneumothorax. 2. Trace left pleural fluid collection. 3. Unchanged left-sided rib fractures. Dictated by: Anthony Garza M.D. on 03/31/2020 at 8:21 Approved by: Anthony Garza M.D. on 03/31/2020 at 8:24
[2020-03-31] MEDS: GABAPENTIN 300 MG CAPSULE PO ×2 (09:55→21:38)
[2020-03-31] MEDS: TAMSULOSIN 0.4 MG CAPSULE PO (09:55)
[2020-03-31] MEDS: DOCUSATE 100 MG CAPSULE PO ×2 (09:55→21:38)
--- NOTE | 2020-03-31 11:23 | PM.PN.1 ---
Subjective Subjective Date Patient Seen: 03/31/20 Time Patient Seen: 11:24 Interval history: No acute overnight events. Having left chest pain which is controlled with gabapentin, IV Dilaudid, Toradol, oxycodone. No shortness of breath Exam Vital Signs (past 8 hours): - 03/31/20 05:13 03/31/20 05:35 03/31/20 07:30 Temperature 98.5 F 98.6 F Pulse Rate 65 60 Respiratory Rate 16 17 Blood Pressure 117/76 109/77 Pulse Oximetry 96 93 95 03/31/20 08:54 Temperature 98.7 F Pulse Rate 78 Respiratory Rate 18 Blood Pressure 124/68 Pulse Oximetry 97 Oxygen Delivery Method Room Air,Nasal Cannula Oxygen Flow Rate 0 Narrative Exam Narrative: General adult male alert oriented no acute distress Left chest chest tube in place serosanguineous output. Tidals no air leak on water seal. Objective Labs Result Diagrams: 03/30/20 04:35 03/29/20 04:30 Assessment & Plan Assessment & Plan narrative: 44-year-old man admitted for trauma sustained multiple left rib fractures and a left pneumothorax. Pneumothorax has been treated with a left-sided chest tube which is now on water seal. I reviewed today's chest x-ray which demonstrates no evidence of pneumothorax. He continues to have drainage from the left chest approximately 200 mL over the course of 24 hours. Will re-evaluate the chest tube tomorrow if less than 100 mL over 24 hours will remove followed by post removal chest x-ray. Continue physical therapy. Continue pain management. Quality VTE Deep Vein Thrombosis/Pulmonary Embolism Present on Admission: No
--- NOTE | 2020-03-31 12:06 | PT.IPTN ---
Current Diagnoses Hemothorax (03/28/20) Retention of urine, unspecified (03/28/20) Multiple fractures of ribs, unspecified side, initial encounter for closed fracture (03/28/20) Flail chest, initial encounter for closed fracture (03/28/20) Traumatic pneumothorax, initial encounter (03/28/20) Contusion of lung, unilateral, initial encounter (03/28/20) Injury, unspecified, initial encounter (03/28/20) Physical Therapy Treatment Note M2 PT-IP Current Condition Start: 03/29/20 13:35 Freq: NEEDED Status: Active Protocol: Document 03/29/20 17:04 AW (Rec: 03/29/20 17:32 AW [email or web address]) Physical Therapy Current Condition Current Condition Evaluation Date 03/29/20 Treatment Diagnosis L pneumothorax, L hemothorax, L rib fractures 1-12; difficulty in walking Onset Date 03/28/20 Precautions Other Precautions chest tube M3 PT-IP Subjective Start: 03/29/20 13:35 Freq: NEEDED Status: Active Protocol: Document 03/31/20 11:15 KS (Rec: 03/31/20 13:55 KS [id number]) Subjective Physical Therapy Visit Type Type Treatment Note Visit Start Time 11:15 Visit Stop Time 12:06 Total Visit Minutes 51 Number of INSURANCE ADJUSTOR Visits 1 Physical Therapy Visit Comments Patient Comments Pt is willing to participate with PT Patient Goals Self-care as independent as possible at home and return to activity Therapy Pain Assessment Pain When Pain Assessed During Mobility Pain Present Pain Present Pain Reported Location left ribs Scale Used no number given Pain Management Techniques Apply Cold,Timing of Activity with Medications M4 PT-IP Mobility and Gait Start: 03/29/20 13:35 Freq: NEEDED Status: Active Protocol: Document 03/31/20 11:15 KS (Rec: 03/31/20 13:55 KS [id number]) PT-Bed Mobility Assessment Scooting Scooting to Edge of Bed Contact Guard Assistance PT-Transfer Assessment Sit to and From Stand Sit to and from Stand Contact Guard Assistance, Minimal Assistance,1 Person Assistance,Use of Upper Extremities Equipment Transfer Assistive Device Gait Belt,Front Wheeled Walker Orthotic/Prosthetic Devices or Brace: No Transfers Transfer Destination Chair Transfer Technique pt ambulated with FWW Transfer Ability Level of Assist Contact Guard Assistance,Use of Upper Extremities Comments Mobility Comments Pt in chair upon arrival from therapy. Instructed pt and pt performed hamstring curls w/ recliner foot rest as resistance, seated marching, seated knee extension, seated adduction w/ towel roll, and glute sets all w/ 8-10 second hold. Pt then sit<>stand CGA w / FWW and ambulated ~[address] in hallway w/ FWW. Pt expressed some lightheadedness during ambulation, OH:84, O2:98%. Pt returned to room and was instructed in standing hip flexor stretch, 3 way hip, and standing marches. Pt left in chair w/ all needs in reach. Gait Assessment Gait Gait Assistance Required: Contact Guard Assist,1 Person Assist Distance (Feet) 220 Assistive Devices Assistive Device Gait Belt,Front Wheeled Walker Orthotic/Prosthetic Devices or Brace: No Gait Deviations General Gait Pattern Antalgic,Decreased Stride Length,Decreased Feet Clearance Factors Limiting Gait Function Factors Limiting Gait Function Decreased Activity Tolerance, Decreased Sensation,Decreased Strength,Limited Range of Motion,Pain,Poor Balance,Poor Safety Awareness Comments Gait Comments Pt ambulated ~220 ft w/ FWW and CGA. Genu varus deformity and c/o discomfort in bilat knees. Pt reported slight lightheadedness during ambulation and needed encouragement to return to room to rest. Stair Climbing Assessment Comments Stair Climbing Comments Not assessed. Pt will need to clear stairs prior to discharge if going home. PT-Balance Assessment Sitting Balance and Reactions Static Sitting Balance Ability Good Dynamic Sitting Balance Ability Fair Standing Balance and Reactions Static Standing Balance Ability Good Dynamic Standing Balance Ability Fair Device Used FWW M5 PT-IP Objective Assessments Start: 03/29/20 13:35 Freq: NEEDED Status: Active Protocol: Document 03/29/20 17:04 AW (Rec: 03/29/20 17:32 AW [email or web address]) Orientation Orientation/Cognition Level of Alertness Alert Orientation Name,Day of Week,Place, Situation Language Function Ability No Deficits Noted Safety Awareness Decreased Safety Awareness Gross Range of Motion Lower Extremity ROM Assessment Within Functional Limits Strength Lower Extremity Strength Assessment Bilaterally Impaired Hip 4-/5 Knee 4+/5 Ankle 4+/5 Comments Strength Comments Limited hip exam due to pain Coordination Assessment Gross Coordination Gross Coordination WNL Sensation Assessment Sensation Light Touch Impaired Sensation Description Numbness Comments Sensation Comments Pt reports numbness at left anterior chest. Muscle Tone Muscle Tone WNL Yes M6 PT-IP Treatment Start: 03/29/20 13:35 Freq: NEEDED Status: Active Protocol: Document 03/31/20 11:15 KS (Rec: 03/31/20 13:55 KS [id number]) Physical Therapy Treatment Exercises Exercises Gluteal Sets,Seated Knee Flexion/Extension Education Education Provided Precautions,Safety Other Treatments Other Treatment Performed Recommended OT order to PASSENGER BARGE MASTER. Seated marches, seated adduction, seated hamstring curls, knee extension, 3 way hip. M7 PT-IP Assessment and Plan Start: 03/29/20 13:35 Freq: NEEDED Status: Active Protocol: Document 03/31/20 11:15 KS (Rec: 03/31/20 13:55 KS [id number]) PT Summary Assessment and Plan Potential Rehabilitation Potential Good Status of Condition at Evaluation Evolving Summary Impairments Pain,ROM,Strength,Balance, Sensation,Bed Mobility, Transfers,Gait,Activity Tolerance Assessment Summary Pt eager to mobilize and participate in exercises. Good tolerance for seated and standing LE strengthening exercises today. Pt tolerated ~220 ft ambulation w/ FWW and reported slight lightheadedness. Pt needs encouragement to rest/recover. CGA for A sit<>Stand, Min A for stand<>sit for slow descent. Pt c/o most pain when stand<>sit. CGA for ambulation. Pt may benefit from OT services to improve ADLs, discussed w/ OT and PASSENGER BARGE MASTER. Pt will benefit from staying w/ his parents vs going home as their home is much more accessible. If pt returns to his own home, he will need to complete stair training. Goals Bed Mobility Goal Standby Assistance Transfer Goal Standby Assistance Gait Goal Standby Assistance,Front Wheel Walker Gait Distance 200 Other Goals - up/down 15 steps without railing SBA transfer and gait goals with LRAD Days to Meet Goals 5 Frequency of Treatment Frequency Of Treatment Once a Day Treatment Plan Physical Therapy Treatment Plan Bed Mobility Training,Transfer Training,Gait Training, Therapeutic Exercise,Balance Retraining,Discharge Planning, Hot or Cold Pack,Neuromuscular Re-ed,Manual Therapy Other Recommendations and Next Treatment assess bed mobility, reinforce Focus diaphragmatic breathing, gait training with LRAD, stairs when able Recommendations To Nursing Amount of Assist Needed 1 Person Assist Discharge Recommendations PT Discharge Recommendations Home with Assistance,Home Health,Outpatient PT Other Discharge Recommendations Home with assist and HH vs OP PT Transportation Needs at Discharge Private Vehicle,Wheelchair/ Cabulance
--- NOTE | 2020-03-31 12:48 | PC.NURSE ---
Am shift Pt reporting increased SOB and WOB since This RN saw him at start of shift, reports he has eaten, been unable to pass flatus, and no stool juares cath removed @ 0600, with no output at this time. Stat CXR obtained for comparison, as chest tube remains water sealed, appropriate tidaling noted to unit. No crepitus SQ. Pt reports sudden onset in breathlessness. Assessed chest tube, no kinks, or dislodged tubing found. Update to DR Ashford. CXR shows no changes, Pt coaxes into standing at bedside to attempt elimination. Unsuccessful void, but postion change greatly helpful for ABD/discomfort. With assist of 1, Pt able to ambulate in room, and denies substantial SOB or pain. 1mg Dilaudid given, attempt PO pain control for better coverage and to avoid nausea. Pt RR rate much improved from initial assessment. Rates pain 4/5-10.
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
--- NOTE | 2020-03-31 14:54 | CM.DPNOTE ---
DCP Cont Reviewed chart; this STUMPER FELLER wonders if patient would be well served at an acute inpatient rehab? Patient is young and motivated; he might benefit from additional cueing, education and therapy from an acute rehab team. Patient has [facility], would need auth and open bed at acute rehab. Visited at patient's bedside today to review DCP w/ patient, his mom, DR Ashford; then later coordinated w/PEDIATRIC NEPHROLOGIST Rolanda. Dr Ashford feels patient will likely be medically ready for DC Thursday, and explained patient should be strong enough and functional enough for safe DC home and PEDIATRIC NEPHROLOGIST agrees. Patient's mom at bedside today, visiting from [place]...she admits to this STUMPER FELLER that she is concerned that patient has poor insight into his limitations and will not follow recommendations to take recovery slow. According to Dr Ashford, the only precaution recommended will be stay diligent on pain regimen as the healing of patient's rib fractures will be painful w/any movement. Patient and mom seem relieved to hear. Patient's spouse Vivian will visit tomorrow for her rotation (of visitors) and patient warns she may be concerned about home plan. Spent a lot of time w/patient and his mom today reviewing plan and reviewing some questions/concerns. patient explained he is planning on returning home, looks forward to his healing at home, and is most concerned about getting on a pain medication regimen that isn't too strong but just the minimum to keep me functional and able to heal. Supported patient/mom and encouraged clear, concise and compassionate communication between family involved. Patient has a good support network, no HH or other services needed at this time. Will continue to follow closely. FREIDA Jaquez
[2020-03-31] MEDS: GLYCERIN SUPP ADULT 1 SUPP 1 EACH PR (15:47)
[2020-03-31] MEDS: BISACODYL 10 MG SUPP PR (18:50)
[2020-03-31] MEDS: LIDOCAINE PATCH 1 EACH ADH..PATCH TOP (21:38)
[2020-03-31] MEDS: SENNOSIDES 8.6 MG TABLET 17.2 MG PO (21:38)
[2020-03-31] MEDS: LORazepam 2 MG/ML INJ 0.5 MG IV (23:10)
[2020-03-31] MEDS: SODIUM CHLORIDE 0.9% FLUSH 10 ML IV (23:17)
[2020-04-01] VITALS (7 sets, daily range): BP systolic 114–133; BP diastolic 69–78; PULSE 66–74; RESP 16–19; TEMP 36.7–37; O2SAT 94–98
[2020-04-01] MEDS: OXYCODONE IR 10 MG TABLET PO ×5 (03:39→21:06)
[2020-04-01] MEDS: HYDROMORPHONE 1 MG INJ IV (03:39)
[2020-04-01] MEDS: KETOROLAC 30 MG/ML VIAL IV (04:40)
[2020-04-01] MEDS: TAMSULOSIN 0.4 MG CAPSULE PO (08:20)
[2020-04-01] MEDS: GABAPENTIN 300 MG CAPSULE PO ×2 (08:20→21:07)
[2020-04-01] MEDS: DOCUSATE 100 MG CAPSULE PO ×2 (08:20→21:06)
[2020-04-01] MEDS: ACETAMINOPHEN 325 MG TABLET 650 MG PO ×3 (08:21→21:43)
[2020-04-01] MEDS: SODIUM CHLORIDE 0.9% FLUSH 10 ML IV ×2 (08:22→21:07)
--- NOTE | 2020-04-01 10:07 | DI.RAD.S_ITS ---
PROCEDURE: XR CHEST 1V INDICATIONS: sp chest tube removal TECHNIQUE: One view of the chest was acquired. COMPARISON: [facility], CR, XR CHEST 1V, 03/31/2020, 8:51. FINDINGS: Surgical changes and devices: Interval removal of left-sided thoracostomy tube. Lungs and pleura: No focal consolidation. Bibasilar atelectasis. Trace residual left apical pneumothorax. Mediastinum: Mediastinal contours appear normal. Heart size is normal. Bones and chest wall: No suspicious bony lesions. Unchanged osseous appearance to numerous left-sided rib fractures and degenerative changes of the spine and shoulders. Overlying soft tissues appear unremarkable. IMPRESSION: Interval removal of left-sided thoracostomy tube with residual trace left-sided pneumothorax. Dictated by: Anthony Garza M.D. on 04/01/2020 at 10:27 Approved by: Anthony Garza M.D. on 04/01/2020 at 10:29
--- NOTE | 2020-04-01 10:09 | DI.US.S_ITS ---
PROCEDURE: US CHEST COMPARISON: None. INDICATIONS: left chest wall swelling sp chest tube r/o hematoma FINDINGS: Targeted sonographic by way aranda of the left chest wall at area of concern shows no focal mass or fluid collection. Mild soft tissue swelling present. IMPRESSION: No evidence of hematoma formation. Dictated by: Anthony Garza M.D. on 04/01/2020 at 11:37 Approved by: Anthony Garza M.D. on 04/01/2020 at 11:40
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
[2020-04-01] MEDS: IBUPROFEN 400 MG TABLET 800 MG PO ×2 (11:43→17:39)
--- NOTE | 2020-04-01 14:42 | PC.NURSE ---
Chest tube removed by Dr. Ashford ~1000. Pt tolerated well. Pain controlled with PO meds. Pt able to shower independently with set up assistance. He is able to ambulate with a fww or cane and SBA. He was able to practice walking up stairs today as well. VSS. Afebrile. RA. Using call light appropriately. Plan is for dc home tomorrow.
--- NOTE | 2020-04-01 15:30 | PT.IPTN ---
Current Diagnoses Hemothorax (03/28/20) Retention of urine, unspecified (03/28/20) Multiple fractures of ribs, unspecified side, initial encounter for closed fracture (03/28/20) Flail chest, initial encounter for closed fracture (03/28/20) Traumatic pneumothorax, initial encounter (03/28/20) Contusion of lung, unilateral, initial encounter (03/28/20) Injury, unspecified, initial encounter (03/28/20) Physical Therapy Treatment Note M2 PT-IP Current Condition Start: 03/29/20 13:35 Freq: NEEDED Status: Active Protocol: Document 03/29/20 17:04 AW (Rec: 03/29/20 17:32 AW [email or web address]) Physical Therapy Current Condition Current Condition Evaluation Date 03/29/20 Treatment Diagnosis L pneumothorax, L hemothorax, L rib fractures 1-12; difficulty in walking Onset Date 03/28/20 Precautions Other Precautions chest tube M3 PT-IP Subjective Start: 03/29/20 13:35 Freq: NEEDED Status: Active Protocol: Document 04/01/20 14:25 AW (Rec: 04/01/20 15:30 AW [id number]) Subjective Physical Therapy Visit Type Type Treatment Note Visit Start Time 13:15 Visit Stop Time 13:55 Total Visit Minutes 40 Number of PERL SOFTWARE ENGINEER Visits 0 Physical Therapy Visit Comments Patient Comments Pt is willing to participate with PT Patient Goals Self-care as independent as possible at home and return to activity Therapy Pain Assessment Pain When Pain Assessed At Rest Pain Present Pain Present Pain Reported Location left ribs Intensity 8 Scale Used 4/10 at rest; 8/10 during transfers Pain Management Techniques Apply Cold,Timing of Activity with Medications M4 PT-IP Mobility and Gait Start: 03/29/20 13:35 Freq: NEEDED Status: Active Protocol: Document 04/01/20 14:25 AW (Rec: 04/01/20 15:30 AW [id number]) PT-Bed Mobility Assessment Rolling Type of Rolling Log Rolling,Roll to Right Level of Assist Minimal Assistance,1 Person Assistance Supine to Sit Supine to Sit Moderate Assistance,1 Person Assistance Sit to Supine Sit to Supine Minimal Assistance,1 Person Assistance PT-Transfer Assessment Sit to and From Stand Sit to and from Stand Standby Assistance,1 Person Assistance,Use of Upper Extremities Equipment Transfer Assistive Device None Orthotic/Prosthetic Devices or Brace: No Transfers Transfer Destination Bed,Chair Transfer Technique pt ambulated with SPC Transfer Ability Level of Assist Contact Guard Assistance,Use of Upper Extremities Comments Mobility Comments Pt in chair when therapy arrived. He was visiting with his . PT discussed assistive devices with the pt and his and they agreed to try a SPC. Pt scooted to EOC and stood using R hand on right thigh to push up SBA. In standing, pt was steady and proceeded to walk out of the room into the halls. With SPC, pt required SBA for ambulation >500 feet. On return to the room, pt was instructed in log roll for bed mobility. Pt required min A x 1 for sit to supine and mod A x 1 for supine to sit. Pt then transferred back to the chair CGA. Gait Assessment Gait Gait Assistance Required: Standby Assistance,Contact Guard Assist,1 Person Assist Distance (Feet) 500 Assistive Devices Assistive Device Gait Belt,Straight Cane Orthotic/Prosthetic Devices or Brace: No Gait Deviations General Gait Pattern Antalgic,Decreased Stride Length,Decreased Feet Clearance,Narrow Based Gait Factors Limiting Gait Function Factors Limiting Gait Function Decreased Activity Tolerance, Decreased Sensation,Decreased Strength,Limited Range of Motion,Pain,Poor Balance,Poor Safety Awareness Comments Gait Comments Pt ambulated >500 feet total with SPC SBA to occasional CGA . Pt agreed he was steadier with SPC than without. Gait was notable for narrow ZARINA which worsened with fatigue. Stair Climbing Assessment Evaluation Level of Assist On Stairs Contact Guard Assistance Devices Stair Climbing Assistive Devices Straight Cane Technique/Endurance Stair Climbing Direction Ascend and Descend Stair Climbing Technique Step Over Step,Step to Step Number of Steps Climbed 20 Stair Climbing Set # Repetitions (reps) 1 Comments Stair Climbing Comments Pt climbed the ICU stairs with SPC held in right hand. He used step-to patterning to descend but ascended step over step. Pt's was present and was grateful for training. PT-Balance Assessment Sitting Balance and Reactions Static Sitting Balance Ability Good Dynamic Sitting Balance Ability Fair Standing Balance and Reactions Static Standing Balance Ability Good Dynamic Standing Balance Ability Fair Device Used SPC M5 PT-IP Objective Assessments Start: 03/29/20 13:35 Freq: NEEDED Status: Active Protocol: Document 03/29/20 17:04 AW (Rec: 03/29/20 17:32 AW [id number]) Orientation Orientation/Cognition Level of Alertness Alert Orientation Name,Day of Week,Place, Situation Language Function Ability No Deficits Noted Safety Awareness Decreased Safety Awareness Gross Range of Motion Lower Extremity ROM Assessment Within Functional Limits Strength Lower Extremity Strength Assessment Bilaterally Impaired Hip 4-/5 Knee 4+/5 Ankle 4+/5 Comments Strength Comments Limited hip exam due to pain Coordination Assessment Gross Coordination Gross Coordination WNL Sensation Assessment Sensation Light Touch Impaired Sensation Description Numbness Comments Sensation Comments Pt reports numbness at left anterior chest. Muscle Tone Muscle Tone WNL Yes M6 PT-IP Treatment Start: 03/29/20 13:35 Freq: NEEDED Status: Active Protocol: Document 04/01/20 14:25 AW (Rec: 04/01/20 15:30 AW [id number]) Physical Therapy Treatment Education Education Provided Precautions,Safety Other Treatments Other Treatment Performed Provided education on energy conservation techniques especially relative to stairs. Pt did best with standing rest break after climbing 10 stairs to allow for even breathing and reduced pain associated with breathing. M7 PT-IP Assessment and Plan Start: 03/29/20 13:35 Freq: NEEDED Status: Active Protocol: Document 04/01/20 14:25 AW (Rec: 04/01/20 15:30 AW [id number]) PT Summary Assessment and Plan Potential Rehabilitation Potential Good Status of Condition at Evaluation Stable Summary Impairments Pain,ROM,Strength,Balance, Sensation,Bed Mobility, Transfers,Gait,Activity Tolerance Progress Towards Goals Progressing Toward Goals Assessment Summary Pt continues to require cues and education for pacing and energy conservation as he tends to overdo activity. He is somewhat more realistic today about his limitations and his is relieved to see him manage stairs with a SPC. PT recommends SPC at discharge and possible HH PT to address safety on stairs and safe mobility progression at home. Goals Bed Mobility Goal Standby Assistance Transfer Goal Standby Assistance Gait Goal Standby Assistance,Front Wheel Walker Gait Distance 200 Other Goals - up/down 15 steps without railing SBA transfer and gait goals with LRAD Days to Meet Goals 5 Frequency of Treatment Frequency Of Treatment Once a Day Treatment Plan Physical Therapy Treatment Plan Bed Mobility Training,Transfer Training,Gait Training, Therapeutic Exercise,Balance Retraining,Discharge Planning, Hot or Cold Pack,Neuromuscular Re-ed,Manual Therapy Recommendations To Nursing Amount of Assist Needed Standby Assistance Discharge Recommendations PT Discharge Recommendations Home with Assistance,Home Health,Outpatient PT Other Discharge Recommendations Home with assist and HH vs OP PT Transportation Needs at Discharge Private Vehicle,Wheelchair/ Cabulance
[2020-04-01] MEDS: LIDOCAINE PATCH 1 EACH ADH..PATCH TOP (21:06)
[2020-04-01] MEDS: SENNOSIDES 8.6 MG TABLET 17.2 MG PO (21:07)
[2020-04-01] MEDS: LORazepam 2 MG/ML INJ 0.5 MG IV (21:17)
--- NOTE | 2020-04-01 22:03 | PC.NURSE ---
Evening shift note: Patient up ambulating in [place]. Patient requiring PRN pain medication along with Tylenol & Ibuprofen as directed. Patient's pain remains around 4-5/10. Patient with 1 BM and multiple voids in restroom. Patient with VSS and remains on RA. Chest tube site with gauze dressing and tegaderm covering. Remains intact with small amount of serousangineous drainage on it. No crepitus noted. Patient stated his bottom was starting to get sore. Cream applied per patient. Currently, patient resting in bed, no distress noted. Pending discharge home tomorrow.
[2020-04-02] MEDS: OXYCODONE IR 10 MG TABLET PO ×4 (01:16→13:26)
[2020-04-02] MEDS: IBUPROFEN 400 MG TABLET 800 MG PO ×3 (01:17→13:26)
[2020-04-02 01:18] VITALS: BP 128/74; PULSE 69; RESP 16; TEMP 36.8; O2SAT 96
[2020-04-02] MEDS: ACETAMINOPHEN 325 MG TABLET 650 MG PO ×2 (04:29→09:09)
[2020-04-02] MEDS: HYDROMORPHONE 1 MG INJ IV ×2 (04:29→14:49)
--- NOTE | 2020-04-02 07:27 | DI.RAD.S_ITS ---
PROCEDURE: XR CHEST 2V INDICATIONS: L PNX f/u TECHNIQUE: 2 views of the chest were acquired. COMPARISON: [facility], CR, XR CHEST 1V, 03/31/2020, 8:51. [facility], CR, XR CHEST 1V, 04/01/2020, 10:11. FINDINGS: Surgical changes and devices: None. Lungs and pleura: A trace pleural effusion is again seen at the left lung apex. Retrocardiac opacity at the left lung base may represent atelectasis versus consolidation or small pleural effusion. Mild atelectasis is seen at the right lung base. Mediastinum: Mediastinal contours are normal. Heart size is normal. Bones and chest wall: No suspicious bony abnormalities. Soft tissues appear unremarkable. Left-sided rib fractures do not appear significantly changed when compared to the radiographs from the day prior. There is a stable chronic fracture deformity of the left clavicle. IMPRESSION: 1. Trace left apical pneumothorax does not appear significantly changed when compared to the exam from the day prior. 2. Retrocardiac opacity may represent atelectasis, consolidation, and/or small pleural effusion. 3. Unchanged left-sided rib fractures and left clavicular fracture. Dictated by: Osmar Aceves M.D. on 04/02/2020 at 8:40 Approved by: Osmar Aceves M.D. on 04/02/2020 at 8:46
[2020-04-02 08:00] VITALS: BP 133/82; PULSE 64; RESP 18; TEMP 37.4; O2SAT 93
[2020-04-02] MEDS: GABAPENTIN 300 MG CAPSULE PO (08:04)
[2020-04-02] MEDS: DOCUSATE 100 MG CAPSULE PO (08:04)
[2020-04-02] MEDS: TAMSULOSIN 0.4 MG CAPSULE PO (08:04)
[2020-04-02] MEDS: SODIUM CHLORIDE 0.9% FLUSH 10 ML IV (08:04)
--- NOTE | 2020-04-02 11:10 | OT.IP.TRT ---
Current Diagnoses Hemothorax (03/28/20) Retention of urine, unspecified (03/28/20) Multiple fractures of ribs, unspecified side, initial encounter for closed fracture (03/28/20) Flail chest, initial encounter for closed fracture (03/28/20) Traumatic pneumothorax, initial encounter (03/28/20) Contusion of lung, unilateral, initial encounter (03/28/20) Injury, unspecified, initial encounter (03/28/20) Occupational Therapy Treatment Note M2 OT-IP Current Condition Start: 03/31/20 15:03 Freq: Status: Active Protocol: Document 03/31/20 15:03 CGR (Rec: 03/31/20 15:18 CGR [id number]) Occupational Therapy Current Condition Current Condition Evaluation Date 03/31/20 Treatment Diagnosis Rib fx and hematoma Diagnosis Onset Date 03/28/20 M3 OT- IP Subjective and Pain Start: 03/31/20 15:03 Freq: Status: Active Protocol: Document 04/02/20 13:41 RM (Rec: 04/02/20 13:54 RM [id number]) OT- Subjective Occupational Therapy Visit Type Type Treatment Note Visit Start Time 11:10 Visit Stop Time 12:05 Total Visit Minutes 55 Occupational Therapy Visit Comments Patient Comments I want to get back on my boat . Patient/Caregiver Goals Return home. OT Pain Assessment Pain When Pain Assessed During Mobility Pain Present Pain Present Pain Reported Location left ribs Intensity 6 Scale Used Numeric (0 - 10) M4 OT- IP ADL's Start: 03/31/20 15:03 Freq: Status: Active Protocol: Document 04/02/20 13:41 RM (Rec: 04/02/20 13:54 RM [id number]) OT ADL-Dressing General Eval Upper Body Dressing Ability Independent Lower Body Dressing Ability Independent Assistive Devices Dressing Assistive Devices Adjunct English Instructor,Sock Aid Comments OT Dressing Comments Provided education and demo for use of vacuum technician and sock- aid with LB porfirio. Pt able to return demo for use of AE with items issued to patient. Also provided education regarding AE for compression stockings per patient request. OT ADL-Bathing Comments OT Bathing Comments Patient reports showering prior to OT in standing without difficulty. M5 OT- IP IADL's Start: 03/31/20 15:03 Freq: Status: Active Protocol: Document 04/02/20 13:41 RM (Rec: 04/02/20 13:54 RM [id number]) OT-Instrumental Activities of Daily Living Painter Apprentice Painter Apprentice Comments Provided education and handout regarding energy conservation and pacing during ADL and IADL routine. Pt verbalized understanding but requesting HH OT to assist with integration into his routines and for assist in returning to his PLOF with self-care and IADLs. M6 OT- IP Functional Cognition Start: 03/31/20 15:03 Freq: Status: Active Protocol: Document 04/02/20 13:41 RM (Rec: 04/02/20 13:54 RM [id number]) Cognitive Factors Limiting Selfcare Function Cognitive Ability Level of Alertness Drowsy Ability to Follow Commands Able to Follow Multi-Step Commands M7 OT- IP Mobility and Balance Start: 03/31/20 15:03 Freq: Status: Active Protocol: Document 04/02/20 13:41 RM (Rec: 04/02/20 13:54 RM [id number]) OT-Transfer Assessment Sit to and From Stand Sit to and from Stand Independent Transfers Transfer Ability Independent Technique Transfer Destination Chair Devices Transfer Assistive Devices Straight Cane OT- Gait Assessment Gait Gait Assistance Required: Independent Assistive Devices Assistive Device Straight Cane OT- Balance Assessment Standing Balance and Reactions Static Standing Balance Ability Good Dynamic Standing Balance Ability Good Comments Other Balance Tests/Deviations/Treatment Discussed recommendation for : non-skid socks or foot wear to decrease fall risk with ambulation. Verbalized understanding, but did not implement. M8 OT- IP Objective Assessments Start: 03/31/20 15:03 Freq: Status: Active Protocol: Document 04/02/20 13:41 RM (Rec: 04/02/20 13:54 RM [id number]) OT Gross Range of Motion Upper Extremity Range of Motion ROM Impairments LUE function limited due to pain. M9 OT- IP Assessment and Plan Start: 03/31/20 15:03 Freq: Status: Active Protocol: Document 04/02/20 13:41 RM (Rec: 04/02/20 13:54 RM [id number]) OT Summary Assessment and Plan Potential Rehabilitation Potential Excellent Analytic Complexity at Evaluation Low Summary OT Impairments Pain,Activity Tolerance Progress Towards Goals Safe For Discharge Assessment Summary Patient able to complete ADL routine to shower and dress without assistance. Does note increased pain with drowsiness during treatment. Treatment Plan Other Treatment Recommendations and Next Patient scheduled for Treatment Focus discharge and recommend HH OT to assist with return to PLOF. Discharge Recommendations OT Discharge Recommendations Home with Assistance Home Equipment Needs Issued vacuum technician, sock aid, long handled sponge, and long handled shoe horn. Also provided education on AE for compression stockings.
--- NOTE | 2020-04-02 11:24 | CM.DPC ---
DCP/continued: Reviewed chart. Spoke with Suad from therapy she reports that current recommendation is home with home health and SPC. Met with patient this AM explained role. Patient aware and agreeable to HH and does not have any preference in HH agencies. Placed call to both [facility] and [facility]. Per Corazon, at [facility] they cannot start services till /Thursday. Spoke also with Trey from [facility] and they can start within the next 24-48hrs. Therefore, referral given to [facility] . Faxed all clinical, order, and F2F. Patient aware and agreeable to plan. Home health brochure provided to patient. In addition, SPC delivered by therapy. P: Home today with [facility]. FREIDA Cardenas
--- NOTE | 2020-04-02 12:28 | PT-IP ANOTE ---
Contacted pt this AM who was with OT at the time. Pt identified more urgent OT needs so PT dispensed SPC and will discharge PT orders at this time. Pt is discharging today.
--- NOTE | 2020-04-02 14:04 | PM.DS.1 ---
History of Present Illness History of Present Illness Date Patient Seen: 04/02/20 Time Patient Seen: 14:04 Chief complaint: fall off boat, posterior chest pain Narrative: 44-year-old man who was admitted following a trauma for left rib fractures and a left pneumothorax Discharge Providers Provider Date of admission: 03/28/20 13:13 Discharge Date: 04/02/20 Consults: 03/28/20 12:02 Consult to Respiratory Therapy Evaluate & Treat Comment: Physician Instructions: Evaluate and treat 03/28/20 13:58 Consult to Respiratory Therapy Evaluate & Treat Comment: goal of 80% inspirority capcity or max 1500mL Physician Instructions: Baseline spriometry vol 03/29/20 12:56 Consult to Physical Therapy Evaluate & Treat Comment: 11 broken ribs on left Physician Instructions: Evaluate and Treat 03/31/20 12:37 Consult to Occupational Therapy Evaluate & Treat Comment: Physician Instructions: Evaluate and treat 04/02/20 10:57 Consult to Home Health Routine Comment: posterior chest pain Reason For Exam: Home Health for PT 04/02/20 11:04 Consult to Home Health Routine Comment: DX: hemothorax Reason For Exam: SPC for home use Discharge provider: Corwin Ashford MD Summary Hospital Course Discharge Diagnosis: Multiple left rib fractures Left pneumothorax Acute urinary retention Hospital Course: Patient was admitted to the intensive care unit for for management of a left pneumothorax and multiple left rib fractures. A left chest tube was placed and he had resolution of his pneumothorax. Chest tube was removed a post tube removal x-ray demonstrates trace left pneumothorax and a follow-up x-ray the next day demonstrates trace left pneumothorax unchanged. Clinically he is requiring no supplemental oxygen respiratory status is on labored. His multiple left rib fractures required multimodal pain management including oxycodone Toradol Tylenol lidocaine. On the date of discharge his pain is controlled he is ambulatory and stable for discharge home. Exam Vital Signs (past 8 hours): - 04/02/20 08:00 Temperature 99.3 F Pulse Rate 64 Respiratory Rate 18 Blood Pressure 133/82 Pulse Oximetry 93 Oxygen Delivery Method Room Air Oxygen Flow Rate 0 Narrative Exam Narrative: General adult male alert oriented no acute distress Chest nonlabored respirations Abdomen soft nontender nondistended Objective Labs Result Diagrams: 03/30/20 04:35 03/29/20 04:30 Discharge Plan Discharge Plan Patient Disposition: Home Discharge comment: Return to the emergency room for shortness of breath/difficulty breathing, fever Discharge orders & Medications Prescriptions: New acetaminophen 325 mg Tablet 650 mg PO Q6HR PRN (Reason: Fever/Mild Pain (1-3)) Qty: 60 RF: 0 tamsulosin [Flomax] 0.4 mg Capsule 0.4 mg PO DAILY 30 Days Qty: 30 RF: 0 lidocaine 5 % Adhesive Patch,Medicated 1 ea topical BEDTIME Qty: 30 RF: 0 ibuprofen 400 mg Tablet 800 mg PO Q6HR PRN (Reason: Pain, Mild (1-3)) Qty: 100 RF: 0 docusate sodium [DOK] 100 mg Capsule 100 mg PO BID Qty: 60 RF: 0 gabapentin [Neurontin] 300 mg Capsule 300 mg PO BID Qty: 60 RF: 0 oxycodone 10 mg Tablet 10 mg PO Q4HR PRN (Reason: Pain, Severe (7-10)) Qty: 60 RF: 0 lorazepam [Ativan] 0.5 mg tablet 0.5 mg PO DAILY PRN (Reason: anxiety) Qty: 20 RF: 0 Follow up/Referrals: Rahul Richardson MD [Physician] - 04/10/20 3:15 pm (appt:04/10 @ 3:[address] Richardson. Please arrive 15 minutes prior to your scheduled appointment. ) Diet/Activity/Treatments Diet: Regular Visit Report/Discharge Packet Instructions: DI for Pneumothorax, DI for Rib Fracture, Lorazepam, Oxycodone, Gabapentin Visit Report Forms: Patient Portal/API, Stroke Signs & Symptoms Quality VTE Deep Vein Thrombosis/Pulmonary Embolism Present on Admission: No
[2020-04-02] MEDS: ONDANSETRON 4 MG/2 ML INJ IV (14:49)
== END 2020-04-02 14:51 | disposition home health service (06) | DRG 200 ==
LOC: ED 10:58 → AC 13:14 → ICU 13:48
PROVIDERS: Admitting Provider Specialist; Emergency Provider Emergency Medicine; Referring Provider Emergency Medicine; Visit Provider Specialist
DX: S27.2XXA Traumatic hemopneumothorax, initial encounter (principal); S22.42XA Multiple fractures of ribs, left side, initial encounter for closed fracture; S27.321A Contusion of lung, unilateral, initial encounter; R33.9 Retention of urine, unspecified; V94.0XXA Hitting object or bottom of body of water due to fall from watercraft, initial encounter
CPT/HCPCS: 36415; 71045; 71046; 71260; 76604; 80053; 81001; 85014; 85018; 85025; 86850; 86900; 86901; 87635; 87797; 94640; 94760; 94762; 94770; 96361; 96374; 96375; 97110; 97116; 97161; 97166; 97530; 97535; 99221; 99231; 99238; 99285; 99291; 99292; J1170; J1885; J2060; J2250; J2405; J3010; Q9967

== ENCOUNTER → 2020-04-12 15:02 | Outpatient (CLI) | payer OTHER, SELFPAY ==
[2020-04-02 11:37] VITALS: BMI 25.0
--- NOTE | 2020-04-12 15:04 | DI.RAD.S_ITS ---
PROCEDURE: XR CHEST 2V INDICATIONS: post multiple rib fxs. s/p pneumo-hemo thorax TECHNIQUE: 2 views of the chest were acquired. COMPARISON: [facility], , XR CHEST 2V, 04/02/2020, 8:09. FINDINGS: Surgical changes and devices: None. Lungs and pleura: Lungs are clear. No pleural effusions or pneumothorax. Mediastinum: Mediastinal contours are normal. Heart size is normal. Bones and chest wall: Unchanges displaced left posterior rib fractures. IMPRESSION: Multiple displaced rib fractures redemonstrated. No pneumothorax or hemothorax present currently. No acute pulmonary process otherwise. Dictated by: Armando Vuong M.D. on 04/12/2020 at 16:00 Approved by: Armando Vuong M.D. on 04/12/2020 at 16:01
== END ==
PROVIDERS: Referring Provider Specialist; Visit Provider Specialist
DX: S22.49XA Multiple fractures of ribs, unspecified side, initial encounter for closed fracture (principal); S27.0XXA Traumatic pneumothorax, initial encounter; S27.321A Contusion of lung, unilateral, initial encounter; T14.90XA Injury, unspecified, initial encounter; J94.2 Hemothorax; X58.XXXA Exposure to other specified factors, initial encounter
CPT/HCPCS: 71046; 99213

== ENCOUNTER → 2020-05-14 13:16 | Outpatient (CLI) | payer OTHER, SELFPAY ==
[2020-04-02 11:37] VITALS: BMI 25.0
--- NOTE | 2020-05-14 13:17 | DI.RAD.S_ITS ---
PROCEDURE: XR CHEST 2V INDICATIONS: multiple left-sided rib fractures TECHNIQUE: 2 views of the chest were acquired. COMPARISON: [facility], , XR CHEST 2V, 04/12/2020, 15:02. FINDINGS: Surgical changes and devices: None. Scattered subsegmental atelectasis and/or scarring. No focal consolidation. No pleural effusions or pneumothorax. Mediastinum: Mediastinal contours are normal. Heart size is normal. Bones and chest wall: Multiple left rib fractures as before. No change in alignment. Mild healing sclerosis and ill-defined margins. Left clavicle fracture as before IMPRESSION: Unchanged alignment of multiple left-sided rib fractures. Mild interval healing sclerosis. Dictated by: Addison Min M.D. on 05/14/2020 at 14:39 Approved by: Addison Min M.D. on 05/14/2020 at 14:42
== END ==
PROVIDERS: PCP Family Medicine; Referring Provider Specialist; Visit Provider Specialist
DX: S22.42XA Multiple fractures of ribs, left side, initial encounter for closed fracture (principal)
CPT/HCPCS: 71046

== ENCOUNTER → 2020-06-01 13:27 | Outpatient (CLI) | payer OTHER, SELFPAY ==
[2020-04-02 11:37] VITALS: BMI 25.0
--- NOTE | 2020-06-01 13:28 | DI.CT.S_ITS ---
PROCEDURE: CT HEAD/BRAIN WO CON INDICATIONS: f/u post trauma TECHNIQUE: Noncontrast 4.5 mm thick angled axial sections acquired from the foramen magnum to the vertex, with coronal and sagittal reformats. For radiation dose reduction, the following was used: automated exposure control, adjustment of mA and/or kV according to patient size. COMPARISON: None. FINDINGS: Image quality: Excellent. CSF spaces: Basal cisterns are patent. An arachnoid cyst is seen involving the posterior aspect of the posterior fossa. Ventricles are normal in size and shape. Brain: No midline shift. No intracranial masses or hemorrhage. [place]-white matter interface is normal. Skull and face: Calvarium and visualized facial bones are intact, without suspicious lesions. Sinuses: At least moderate mucosal thickening is seen within the left maxillary sinus. Mild mucosal thickening is seen elsewhere within the paranasal sinuses. No abnormal fluid is seen within the mastoid air cells. IMPRESSION: No intracranial hemorrhage is seen. No acute intracranial abnormality is detected. Posterior fossa arachnoid cyst incidentally noted. Paranasal sinus disease is also seen, which is most prominent within the left maxillary sinus. Dictated by: Arya Gilliam M.D. on 06/01/2020 at 12:57 Approved by: Arya Gilliam M.D. on 06/01/2020 at 12:58
== END ==
PROVIDERS: PCP Family Medicine; Referring Provider Specialist; Visit Provider Specialist
DX: G93.0 Cerebral cysts (principal); J32.8 Other chronic sinusitis; Z87.898 Personal history of other specified conditions
CPT/HCPCS: 70450

== ENCOUNTER → 2020-08-06 09:45 | Outpatient (CLI) | payer OTHER, SELFPAY ==
[2020-04-02 11:37] VITALS: BMI 25.0
[2020-08-06 10:46] LABS: Add Manual Diff / Slide Review NO; Basophils Absolute Auto 0 /uL (0-100); Basophils Percent Auto 1.1 % (0-2); Eosinophils Absolute Auto 300 /uL (0-450); Eosinophils Percent Auto 6.7 % (2-4); Hematocrit 41.2 % (41-53); Hemoglobin 13.8 g/dL (13.5-17.5); Lymphocytes Absolute Auto 1400 /uL (1100-4500); Lymphocytes Percent Auto 33.9 % (25-40); Mean Corpuscular HGB Conc 33.4 % (30-36); Mean Corpuscular Hemoglobin 30.2 PG (26-34); Mean Corpuscular Volume 90.4 fL (80-100); Monocytes Absolute Auto 500 /uL (0-900); Monocytes Percent Auto 11.4 % (3-14); Neutrophils Absolute Auto 1900 /uL (1500-7000); Neutrophils Percent Auto 46.9 % (50-75); Platelet Count 169 X10^3/uL (150-400); Red Blood Cell Count 4.56 X10^6/uL (4.5-5.9); Red Cell Distribution Width 14.1 % (11.6-14.8); White Blood Cell Count 4.1 X10^3/uL (4.5-11.0)
[2020-08-06 11:33] LABS: Alanine Aminotransferase 32 IU/L (<50); Albumin 4.3 g/dL (3.5-5.0); Albumin Globulin Ratio 1.6 (1.0-2.8); Alkaline Phosphatase 59 U/L (38-126); Aspartate Aminotransferase 37 IU/L (17-59); BUN Creatinine Ratio 16.3 (6-22); Bilirubin Total 1.1 mg/dL (0.2-1.3); Blood Urea Nitrogen 14 mg/dL (9-20); Calcium 9.7 mg/dL (8.4-10.2); Carbon Dioxide 32 mmol/L (22-32); Chloride 102 mmol/L (98-107); Cholesterol 185 mg/dL (140-199); Estimated Glomerular Filt Rate > 60.0 mL/min (>60); Globulin 2.7 g/dL (1.7-4.1); Glucose 95 mg/dL (70-100); HDL Cholesterol 85 mg/dL (40-60); HEMOLYSIS < 15 (0-50); LDL Cholesterol Calculated 85 mg/dL (<100); Potassium 4.4 mmol/L (3.4-5.1); Sodium 136 mmol/L (137-145); Triglycerides 77 mg/dL (35-150)
== END ==
PROVIDERS: PCP Family Medicine; Referring Provider Family Medicine; Visit Provider Family Medicine
DX: Z00.00 Encounter for general adult medical examination without abnormal findings (principal); Z13.220 Encounter for screening for lipoid disorders; Z13.228 Encounter for screening for other metabolic disorders
CPT/HCPCS: 36415; 80053; 80061; 85025

== ENCOUNTER → 2021-05-19 12:44 | Outpatient (CLI) | payer OTHER, SELFPAY ==
[2020-04-02 11:37] VITALS: BMI 25.0
[2021-05-19 16:10] LABS: COVID19 -Nasal RAPID Negative (Negative)
== END ==
PROVIDERS: PCP Family Medicine; Visit Provider Physician Assistant
DX: Z20.822 Contact with and (suspected) exposure to COVID-19 (principal)
CPT/HCPCS: 87635